=== PATIENT | female | born 1980 | race Caucasian/White ===

== ENCOUNTER 2017-10-26 16:17 | Emergency (ER) | payer OTHER ==
[~2017-10-26] VITALS: Ht 162.6 cm; Wt 78.0 kg
[2017-10-26] MEDS ORDERED: KEFLEX500 M1 PO (16:36)
[2017-10-26] MEDS ORDERED: BACTRIM DS TAB1 EACH PO (16:37)
[2017-10-26] MEDS ORDERED: HYDROCODONE-AP1 EAC6 PO (16:37)
[2017-10-26 18:19] VITALS: BP 109/79
== END 2017-10-26 18:20 | disposition home or self-care (01) ==
LOC: M.ERS 16:17
DX: L72.3 Sebaceous cyst (principal); J44.9 Chronic obstructive pulmonary disease, unspecified; F17.210 Nicotine dependence, cigarettes, uncomplicated; Z90.49 Acquired absence of other specified parts of digestive tract

== ENCOUNTER 2019-01-05 09:52 | Emergency (ER) | payer OTHER, MEDICAID ==
[~2019-01-05] VITALS: Ht 162.6 cm; Wt 77.1 kg
[~2019-01-05 09:52] MED LIST: BACTRIM DS TAB1 EACH PO; HYDROCODONE-AP1 EAC6 PO; KEFLEX500 M1 PO
[2019-01-05 10:16] LABS: URINE BILIRUBIN NEGATIVE (Negative); URINE BLOOD 3+ (Negative); URINE CLARITY CLEAR; URINE COLOR YELLOW; URINE GLUCOSE-RANDOM NEGATIVE (Negative); URINE KETONES NEGATIVE (Negative); URINE LEUKOCYTES NEGATIVE (Negative); URINE NITRITE NEGATIVE (Negative); URINE PROTEIN NEGATIVE (Negative); URINE SPECIFIC GRAVITY <= 1.005 (1.005-1.030); URINE UROBILINOGEN 0.2 E.U./dl (0.2-1.0)
[2019-01-05 10:24] LABS: AMP/METHAMP Negative (Negative); BARBITURATES Negative (Negative); BENZODIAZEPINES Negative (Negative); COCAINE Negative (Negative); METHADONE Negative (Negative); OPIATES Negative (Negative); PCP Negative (Negative); THC POSITIVE (Negative)
[2019-01-05 10:33] LABS: BACTERIA 1-9 Few /HPF (None Seen); CASTS None Seen /LPF (None Seen); CRYSTALS None Seen /LPF (None Seen); MUCUS 0-3 Light strn/LPF (None Seen); SQUAMOUS 4-10 Moderate /LPF (0-3); URINE RBC 3-10 Few /HPF (0-2); URINE WBC 0-5 Rare /HPF (0-5)
[2019-01-05 10:37] LABS: ABSOLUTE BASOPHILS 0.1 thou/uL (0.0-0.2); ABSOLUTE EOSINOPHILS 0.1 thou/uL (0.0-0.7); ABSOLUTE LYMPHOCYTES 1.9 thou/uL (0.8-5.3); ABSOLUTE MONOCYTES 0.2 thou/uL (0.0-1.2); ABSOLUTE NEUTROPHILS 4.4 thou/uL (1.6-8.1); BASOPHILS 1.3 %; EOSINOPHILS 2.1 %; HEMATOCRIT 43.6 % (37.0-47.0); LYMPHOCYTES 27.5 %; MCH 31.3 pg (26.0-34.0); MCHC 34.5 g/dL (28.0-37.0); MCV 90.9 fL (80.0-100.0); MONOCYTES 3.7 %; MPV 8.7 fl. (7.2-11.1); NUCLEATED RBCS 0 /100WBC; PLATELET COUNT* 310 thou/uL (150-400); POLYS 65.4 %; RBC 4.79 mil/uL (4.20-5.00); RDW-CV 13.2 % (10.5-14.5); WBC 6.7 thou/uL (4.0-11.0)
[2019-01-05 10:47] LABS: ANION GAP 11 mmol/L (7-16); BUN 8 mg/dL (7-18); CALCIUM 9.3 mg/dL (8.5-10.1); CHLORIDE 103 mmol/L (98-107); CO2 28 mmol/L (21-32); CREATININE 0.8 mg/dL (0.6-1.3); GLUCOSE 87 mg/dL (70-99); POTASSIUM 3.5 mmol/L (3.5-5.1); SODIUM 142 mmol/L (136-145)
[2019-01-05 10:59] LABS: ALBUMIN 4.2 g/dL (3.4-5.0); ALKALINE PHOSPHATASE 77 U/L (46-116); LIPASE 400 U/L (73-393); SGOT 25 U/L (15-37); SGPT 32 U/L (30-65); TOTAL BILIRUBIN 0.5 mg/dL (<0.1-1.0); TROPONIN-I LEVEL <0.06 ng/mL (<0.06)
[2019-01-05] MEDS ORDERED: CIPRO500 MG PO (12:48)
[2019-01-05] MEDS ORDERED: NORCO 5-325 TA1 EAC1 PO (12:48)
[2019-01-05] MEDS ORDERED: ONDANSETRON HCL4 M2 PO (12:48)
[2019-01-05] MEDS ORDERED: IBUPROFEN 800800 M1 PO (12:48)
[2019-01-05] MEDS ORDERED: FLAGYL500 M1 PO (12:48)
[2019-01-05 13:25] VITALS: BP 140/80
--- NOTE | 2019-01-05 15:08 | EKG ---
[place] [address] ELECTROCARDIOGRAM REPORT Name: KAROLINA ROBERSON Room: [facility]#: [id number] Admission: 01/05/19 Attend Phys: Discharge: 01/05/19 Date of : 84 Report #: [id number] THIS REPORT FOR: //name// [facility] ED Test Date: 2019-01-05 Test Time: 10:36:49 Pat Name: KAROLINA ROBERSON Department: Room: Gender: F Victim Witness Administrator: : [id number] Requested By: Ching Mcnair Order Number: [id number] MD: Brian Corona Measurements Intervals [place] Rate: 67 P: 46 MD: 135 QRS: 35 QRSD: 100 T: 40 QT: 396 QTc: 418 Interpretive Statements Sinus rhythm ST elev, probable normal early repol pattern No previous ECG available for comparison Electronically Signed On 01-05-2019 15:08:44 CDT by Brian Corona [email or web address] <ELECTRONICALLY SIGNED> By: Brian Corona MD, [facility] 01/05/19 1508 [id number] Brian Corona MD, FACC /EPI
== END 2019-01-05 13:26 | disposition home or self-care (01) ==
LOC: M.ERS 09:52
PROVIDERS: Nurse Practitioner Family
DX: K52.9 Noninfective gastroenteritis and colitis, unspecified (principal); R74.8 Abnormal levels of other serum enzymes; J44.9 Chronic obstructive pulmonary disease, unspecified; F17.210 Nicotine dependence, cigarettes, uncomplicated; Z90.49 Acquired absence of other specified parts of digestive tract; Z86.2 Personal history of diseases of the blood and blood-forming organs and certain disorders involving the immune mechanism; Z79.899 Other long term (current) drug therapy

== ENCOUNTER 2019-01-10 19:43 | Emergency (ER) | payer OTHER, MEDICAID ==
[~2019-01-10] VITALS: Ht 162.6 cm; Wt 77.1 kg
[~2019-01-10 19:43] MED LIST changes: +CIPRO500 MG PO; +FLAGYL500 M1 PO; +IBUPROFEN 800800 M1 PO; +NORCO 5-325 TA1 EAC1 PO; +ONDANSETRON HCL4 M2 PO
[2019-01-10] MEDS ORDERED: BENTYL 10 MG CA10 M1 (20:03)
[2019-01-10] MEDS ORDERED: MACROBID 100 M100 M2 (20:03)
[2019-01-10 20:12] LABS: URINE BILIRUBIN NEGATIVE (Negative); URINE BLOOD NEGATIVE (Negative); URINE CLARITY CLEAR; URINE COLOR YELLOW; URINE GLUCOSE-RANDOM NEGATIVE (Negative); URINE KETONES NEGATIVE (Negative); URINE LEUKOCYTES-REFLEX NEGATIVE (Negative); URINE NITRITE-REFLEX NEGATIVE (Negative); URINE PROTEIN NEGATIVE (Negative); URINE UROBILINOGEN 0.2 E.U./dl (0.2-1.0)
[2019-01-10 20:21] LABS: ABSOLUTE BASOPHILS 0.1 thou/uL (0.0-0.2); ABSOLUTE EOSINOPHILS 0.1 thou/uL (0.0-0.7); ABSOLUTE LYMPHOCYTES 2.4 thou/uL (0.8-5.3); ABSOLUTE MONOCYTES 0.4 thou/uL (0.0-1.2); ABSOLUTE NEUTROPHILS 4.9 thou/uL (1.6-8.1); EOSINOPHILS 1.7 %; HEMATOCRIT 38.7 % (37.0-47.0); HEMOGLOBIN 13.2 gm/dL (12.0-15.0); LYMPHOCYTES 30.1 %; MCH 31.3 pg (26.0-34.0); MCHC 34.2 g/dL (28.0-37.0); MCV 91.4 fL (80.0-100.0); MPV 8.4 fl. (7.2-11.1); NUCLEATED RBCS 0 /100WBC; PLATELET COUNT* 316 thou/uL (150-400); POLYS 62.2 %; RBC 4.23 mil/uL (4.20-5.00); RDW-CV 13.1 % (10.5-14.5); WBC 7.9 thou/uL (4.0-11.0)
[2019-01-10 20:27] LABS: CALCIUM 9.6 mg/dL (8.5-10.1); POTASSIUM 3.5 mmol/L (3.5-5.1)
[2019-01-10 20:32] LABS: ALBUMIN 3.7 g/dL (3.4-5.0); TOTAL BILIRUBIN 0.2 mg/dL (<0.1-1.0); TOTAL PROTEIN 6.9 g/dL (6.4-8.2)
[2019-01-10] MEDS ORDERED: PHENERGAN 25 MG25 M1 PO (21:19)
[2019-01-10] MEDS ORDERED: PROMS25 WY RECTAL (21:19)
[2019-01-10 21:39] VITALS: BP 132/74
== END 2019-01-10 21:39 | disposition home or self-care (01) ==
LOC: M.ERS 19:43
PROVIDERS: Emergency Medicine Emergency Medical Services
DX: F12.288 Cannabis dependence with other cannabis-induced disorder (principal); R11.2 Nausea with vomiting, unspecified; J44.9 Chronic obstructive pulmonary disease, unspecified; F17.210 Nicotine dependence, cigarettes, uncomplicated; Z90.49 Acquired absence of other specified parts of digestive tract; Z86.2 Personal history of diseases of the blood and blood-forming organs and certain disorders involving the immune mechanism